=== PATIENT | female | born 1950 | race American Indian/Alaskan Native ===

== ENCOUNTER 2016-11-25 16:42 | Emergency (ER) | payer OTHER ==
[2016-11-25] MEDS ORDERED: FIORICET PO ONE (19:59)
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
[2016-11-25] MEDS ORDERED: NORCO 5/325 PO ONE (21:53)
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
[2016-11-25 22:49] VITALS: BP 130/92
--- NOTE | 2016-11-26 09:57 | XRay Report ---
LUMBOSACRAL SPINE, 3 VIEWS: History: Back pain Findings: The vertebral bodies, disk spaces and posterior elements are intact. No compression deformity or malalignment. Advanced degenerative changes are noted at all levels. The SI joints are symmetric and unremarkable. Impression: Advanced lumbar spondylosis. No evidence for acute injury to the lumbar spine.
== END 2016-11-25 22:51 | disposition home or self-care (01) ==
LOC: ED 16:42
DX: S13.4XXA Sprain of ligaments of cervical spine, initial encounter (principal); I10 Essential (primary) hypertension; E11.9 Type 2 diabetes mellitus without complications; V49.9XXA Car occupant (driver) (passenger) injured in unspecified traffic accident, initial encounter; Y93.89 Activity, other specified; Y92.89 Other specified places as the place of occurrence of the external cause; Y99.8 Other external cause status; Z98.890 Other specified postprocedural states
CPT/HCPCS: 70450; 72100; 72125; 99284